=== PATIENT | male | born 1955 | race Caucasian/White ===

== ENCOUNTER → 2023-01-19 | Outpatient (CLI) | payer MEDICARE, OTHER | LOC: CARD 08:10 | PROVIDERS: ATTEND Internal Medicine Cardiovascular Disease | DX: I10 Essential (primary) hypertension (principal); I25.10 Atherosclerotic heart disease of native coronary artery without angina pectoris | CPT/HCPCS: 93306 ==

== ENCOUNTER 2023-02-15 10:50 | Day surgery (SDC) | payer MEDICARE, OTHER ==
[~2023-02-15] VITALS: Ht 172 cm; Wt 120.0 kg
[2023-02-15] VITALS (13 sets, daily range): BP systolic 97–171; BP diastolic 42–73
--- NOTE | 2023-02-15 10:43 | Cardiology Stress Test Report ---
Stress Test Report Date of Procedure/Referring: Date of Procedure: Feb 15, [address] Patrick Romero Admitting Physician Admitting Physician: Attending Physician: Itzel Billy MD Indications: Dyspnea Baseline Heart Rate: 64 Baseline Blood Pressure: Blood Pressure Systolic: 163 Blood Pressure Diastolic: 70 Vital Signs Date Time Temp Pulse Resp B/P (MAP) Pulse Ox O2 Delivery O2 Flow Rate FiO2 02/15/23 09:14 66 17 105/69 (81) 98 Room Air Baseline Vital Signs Vital Signs Date Time Temp Pulse Resp B/P (MAP) Pulse Ox O2 Delivery O2 Flow Rate FiO2 02/15/23 09:14 66 17 105/69 (81) 98 Room Air Baseline EKG: Baseline EKG: NSR Summary: After explaining the procedure and details to the patient, he signed the consent and was brought to the stress nuclear laboratory. Patient exercised on standard Ghassan protocol, EKG, heart rate and blood pressure were monitored continuously, resting and stress doses of radio tracer were injected, imaging was acquired and reviewed in the short axis, horizontal long axis and vertical long axis views Patient was able to exercise for a total of 6 minutes on Ghassan protocol, METs 7.3 Maximum heart rate 134 Maximum blood pressure 214/64 Stress EKG, Minimal nondiagnostic changes Recovery EKG, Return to baseline TID: 0.94 SSS: 5 SDS: 5 EF: 55 Conclusion: Fair exercise tolerance for 6 minutes on standard Ghassan protocol 7.3 METS achieving 88% of maximum expected heart rate Appropriate heart rate response to exercise with hypertensive response to exercise with peak blood pressure 214/64 Exercise-induced multiple episodes of nonsustained ventricular tachycardia up to 8 beats during recovery Nondiagnostic EKG changes with exercise return to baseline during recovery Reversible ischemia involving the mid to apical inferior wall and inferolateral wall mild decrease uptake at the anterior wall Normal left ventricular size, ejection fraction 55% ITZEL BILLY MD Feb 15, 2023 10:43
[~2023-02-15 10:50] MED LIST: CATHETER FLUSH 10 ML SYR IVP PRN; HEParin (CATH LAB) 2,000 ML IV ONE; LIDOCAINE 1% INJ 20 ML VIAL ONE; NS IV 1000 ML 1,000 ML IV SCH; NS IV 1000 ML 1,000 ML ONE
[2023-02-15] MEDS ORDERED: VERAPAMIL 5 MG/2 ML (CALAN) VIAL IV ONE (11:05)
[2023-02-15] MEDS ORDERED: fentaNYL INJ 100 MCG/2 ML AMP ONE (11:05)
[2023-02-15] MEDS ORDERED: HEParin 1000 UNIT/ML (10ML VIAL) FOR BOLUS ONE (11:06)
[2023-02-15] MEDS ORDERED: NITRO DRIP 25000 MCG/D5W 250 ML IV ONE (11:06)
[2023-02-15] MEDS ORDERED: MIDAZOLAM 5 MG/5 ML (VERSED) VIAL ONE (11:06)
[2023-02-15 11:46] LABS: HEMATOCRIT 39 % (40-54); HEMOGLOBIN 13.3 g/dL (13.3-17.7); MEAN CORPUSCULAR HEMOGLOBIN 31 pg (25-34); MEAN CORPUSCULAR HGB CONC 34 g/dL (32-36); MEAN CORPUSCULAR VOLUME 90 fL (80-99); MEAN PLATELET VOLUME 9.7 fL (9.0-12.2); PLATELET COUNT 253 10^3/uL (130-400); WHITE BLOOD COUNT 7.3 10^3/uL (4.3-11.0)
[2023-02-15 11:56] LABS: PROTHROMBIN TIME PATIENT 13.5 SEC (12.2-14.7)
[2023-02-15] MEDS ORDERED: ATROPINE INJECTION 1 MG/10 ML SYR (ABBOTT) ONE (11:56)
[2023-02-15 11:59] LABS: ALBUMIN 4.4 GM/DL (3.2-4.5); BILIRUBIN,TOTAL 0.8 MG/DL (0.1-1.0); CALCIUM 10.8 MG/DL (8.5-10.1); CREATININE SERUM 1.15 MG/DL (0.60-1.30); TOTAL PROTEIN 7.1 GM/DL (6.4-8.2)
--- NOTE | 2023-02-15 12:09 | Cardiac Procedure Note-CS/ASA ---
Pre-Procedure Note Pre-Op Procedure Note Date of Available H&P: Feb 15, 2023 Date H&P Reviewed: Feb 15, 2023 Time H&P Reviewed: 11:00 History & Physical: H&P Reviewed, Patient Examed, No changes noted Pre-Operative Diagnosis: CAD Moderate Sedation PreProcedure Time 11:00 ASA Score 3 Airway Lungs Heart ASA score ASA 1: a normal healthy patient ASA 2: a patient with a mild systemic disease (mid diabetes, controlled hypertension, obesity ASA 3: a patient with a severe systemic disease that limits activity (angina, COPD, prior Myocardial infarction) ASA 4: a patient with an incapacitating disease that is a constant threat to life (CHF, renal failure) ASA 5: a moribund patient not expected to survive 24 hrs. (ruptured aneurysm) ASA 6: a declared brain- patient whose organs are being harvested. For emergent operations, add the letter E after the classification Mallampati Classification Grade 3 Sedation Plan Analgesia, Amnesia, Plan communicated to team members, Discussed options with patient/fam, Discussed risks with patient/fam The patient is an appropriate candidate to undergo the planned procedure, sedation, and anesthesia. The patient immediately re-assessed prior to indication. ITZEL PHILLIPS MD Feb 15, 2023 12:09
--- NOTE | 2023-02-15 12:10 | Discharge Inst-Post CATH ---
Discharge Inst-CATH/EP Problems Reviewed?: Yes Post Cardiac Cath/EP D/C Inst Follow Up/Plan Appointment with Dr. Billy's office in 2 to 4 weeks <b>CARDIAC CATH/EP PROCEDURE DISCHARGE INSTRUCTIONS</b> ACTIVITY * Go Home directly and rest. * Limit activity of the leg (or wrist if it was used) for 7 days including aer obics, swimming, jogging, bicycling, etc. * Restrict stair-climbing for 7 days if possible, if not, climb up with your non-cath leg, then bring together on the same step. * Avoid lifting, pushing, pulling or excessive movement of the affected extremi ty for 7 days. * Customary sexual activity may be resumed after 2 days-use caution not to use a position that strains or causes pain to the affected extremity. * No driving for 24 hours. * NO SMOKING. * Avoid straining for bowel movements for 7 days. * Gentle walking on level ground is allowed. * Returning to work will depend on the type of procedure and the results. Your doctor will discuss this with you. CALL YOUR DOCTOR FOR ANY OF THE FOLLOWING: *If bleeding from the puncture site occurs- Apply gentle pressure to site with clean cloth and call your doctor or EMS. * If a knot or lump forms under the skin, increases in size, or causes pain. * If bruising appears to be worsening or moving further down your leg instead of disappearing. * Temperature above 101 F. CARE OF YOUR GROIN INCISION; * Bruising or purple discoloration of the skin near the puncture site is common. * You may shower only, no bathtub bathing for 5 days. Be careful to avoid slipping as your leg may feel stiff. * If a closure device was used on your femoral artery, please see the attached guide regarding care of the device and your leg. * Leave dressing on FOR 24 hours. CARE OF YOUR WRIST INCISION; * Bruising or purple discoloration of the skin near the puncture site is common. * You may shower. * DO NOT submerge wrist. * Leave dressing on FOR 24 hours. ITZEL BILLY MD Feb 15, 2023 12:10
--- NOTE | 2023-02-15 12:14 | Cardiac Cath Report ---
Cardiac Cath Report Physician (s)/Film Editor Supervisor (s) Physician ITZEL PHILLIPS MD Pre-Procedure Diagnosis Pre-Procedure Diagnosis: CAD Post-Procedure Note Procedure Start Date: Feb 15, 2023 Name of Procedure: Left heart catheterization Left ventriculogram Aortic arch angiogram Findings/Procedure Note PROCEDURE NOTE: 67-year-old gentleman with abnormal stress test done today showing inferior wall ischemia, had exercise-induced nonsustained ventricular tachycardia. Urgent cardiac catheterization was advised. After explaining the procedure to the patient, all pros and cons were explained, all questions were answered. The patient signed the consent and then he was placed in the cardiac catheterization laboratory. Groin was prepped in SL fashion local anesthesia was used. Sheath placed in the right radial artery, [place] catheter was advanced and engaged the left coronary system could not cross the aortic valve with it, exchanged to a Sara right catheter and engaged the right coronary system and angiogram was done then I was able to cross the aortic valve and advanced the catheter to the left ventricular cavity, pressure was measured, pullback LV to aorta was done, left ventriculogram was done then patient was hypotensive throughout the procedure I was concerned about aortic dissection I proceeded with aortic arch angiogram. Left ventriculogram was done Aortic arch angiogram was done At the end of the procedure the sheath was removed. Vascular band was used FINDINGS: Hemodynamics LV 76/11, end-diastolic pressure of 11 Aorta 84/58 mean of 71 ANATOMY: Left Main is free of obstructive disease Left Anterior Descending is tortuous artery with slow flow in the LAD Left Circumflex is moderate in size with slow flow Right Coronary Artery is dominant artery large artery with slow flow in the right coronary artery LV Gram was done showing normal left ventricular size, ejection fraction 50% Aorta evaluation done with aortic arch angiogram showing normal aortic arch, no dissection, no aneurysm, normal origin of the brachiocephalic artery left carotid and left subclavian arteries Dominance right coronary artery CONCLUSION: Dominant right coronary system with slow flow in the coronary system due to small vessel disease Normal left ventricular size, ejection fraction 50% Normal aortic arch and great vessels of the neck DISCUSSION AND RECOMMENDATION: Patient has significantly slow flow in the coronary system due to small vessel disease and he was hypotensive during the procedure. We will decrease his losartan. Educated on increasing fluid intake and monitor lipids Anesthesia Type: Conscious Sedation Estimated blood loss (mL): 10 ml Contrast Amount: 70 ml Total Radiation Dose: 1001 mGy Post-Procedure Diagnosis Post-operative diagnosis: Shortness of breath Coronary artery disease Hyperlipidemia Ventricular tachycardia ITZEL PHILLIPS MD Feb 15, 2023 12:14
[2023-02-15] MEDS ORDERED: NS IV 1000 ML 1,000 ML IV SCH (12:15)
--- NOTE | 2023-02-15 12:17 | Cardiology History & Physical ---
HPI-Cardiology Cardiology Consultation Date of Consultation 02/15/23 Date of Admission Time Seen by Provider: 11:00 Indication: Shortness of breath HPI 67-year-old gentleman with history of hypertension, hyperlipidemia, was scheduled for stress test today, during stress test patient had nonsustained ventricular tachycardia, had an abnormal stress test with inferior wall ischemia . I visited with the patient and recommended cardiac catheterization. PMH-Cardiology Genitourinary Prostate Problems Cancer Skin Social History Patient Social History Marrital Status: Family Hx Significant Family History: No Pertinent Family Hx ROS-Cardiology Review of Systems General: No Chills, No Night Sweats; Fatigue; No Malaise, No Appetite HEENT: No Head Aches, No Visual Changes, No Eye Pain, No Ear Pain, No Dysphasi a, No Sinus Congestion, No Post Nasal Drip, No Sore Throat Pulmonary: Dyspnea; No Cough, No Pleuritic Chest Pain Cardiovascular: No: Chest Pain, Palpitations, Orthopnea, Paroxysmal Noc. Dyspnea, Edema, Lt Headedness Gastrointestinal: No: Nausea, Vomiting, Abdominal Pain, Diarrhea, Constipation, Melena, Hematochezia Genitourinary: No Dysuria, No Frequency, No Incontinence, No Hematuria, No Retention Musculoskeletal: No: neck pain, shoulder pain, arm pain, back pain, hand pain, leg pain, foot pain Neurological: No: Weakness, Numbness, Incoordination, Change in speech, Confusion, Seizures Home Medications & Allergies Allergies: Coded Allergies: Sulfa (Sulfonamide Antibiotics) (Unverified Allergy, Unknown, 02/15/23) Home Medication List Reviewed: Yes Exam-Cardiology Vital Signs Vital Signs Date Time Temp Pulse Resp B/P (MAP) Pulse Ox O2 Delivery O2 Flow Rate FiO2 02/15/23 10:53 36.4 70 22 109/51 (70) Room Air 02/15/23 09:22 98 Exam General Appearance: Alert, Oriented X3, Cooperative, No Acute Distress HEENT: Atraumatic, PERRLA Respiratory: Clear to Auscultation, Normal Air Movement Cardiovascular: Regular Rate, Normal S1, Normal S2, No Murmurs Abdominal: Normal Bowel Sounds, Soft, No Tenderness, No Hepatosplenomegaly, No Masses Extremities: No Clubbing, No Cyanosis, No Edema, Normal Pulses, No Tenderness/Swelling Skin: No Rashes, No Breakdown, No Significant Lesion Neuro: Normal Gait, Normal Speech, Strength at 5/5 X4 Ext, Normal Tone, Sensation Intact Psych/Mental Status: Mental Status NL, Mood NL Results Labs Labs Laboratory Tests 02/15/23 10:53: White Blood Count 7.3, Red Blood Count 4.29L, Hemoglobin 13.3, Hematocrit 39L, Mean Corpuscular Volume 90, Mean Corpuscular Hemoglobin 31, Mean Corpuscular Hemoglobin Concent 34, Red Cell Distribution Width 12.4, Platelet Count 253, Mean Platelet Volume 9.7, Prothrombin Time 13.5, INR Comment 1.0, Activated Part ial Thromboplast Time 32, Sodium Level 139, Potassium Level 4.0, Chloride Level 106, Carbon Dioxide Level 26, Anion Gap 7, Blood Urea Nitrogen 14, Creatinine 1.15, Estimat Glomerular Filtration Rate 69, BUN/Creatinine Ratio 12, Glucose Level 90, Calcium Level 10.8H, Corrected Calcium 10.5H, Total Bilirubin 0.8, Aspartate Amino Transf (AST/SGOT) 37H, Alanine Aminotransferase (ALT/SGPT) 61H, Alkaline Phosphatase 90, Total Protein 7.1, Albumin 4.4, Triglycerides Level 114, Cholesterol Level 114, LDL Cholesterol Direct 60, VLDL Cholesterol 23, HDL Cholesterol 36L A/P-Cardiology Admission Diagnosis Dyspnea Coronary artery disease Hypertension Hyperlipidemia Admission Status: Observation Reason for Inpatient Admission: Same day surgery Assessment/Plan Dyspnea on insertion, will unsteady gait Nonsustained ventricular tachycardia noted during stress test Recommended cardiac catheterization Coronary artery disease, abnormal stress test with inferior wall ischemia. Recommended cardiac catheterization Hypertension, currently borderline hypotensive, monitor blood pressure Hyperlipidemia maintained on atorvastatin 20 mg daily COPD, using CPAP as an outpatient History of depression BMI 40, discussed weight loss ITZEL PHILLIPS MD Feb 15, 2023 12:17
[2023-02-15] MEDS ORDERED: MULT267T PO (12:27)
[2023-02-15] MEDS ORDERED: BETA15CR14 TP (12:27)
[2023-02-15] MEDS ORDERED: ATOR20TA66 PO (12:27)
[2023-02-15] MEDS ORDERED: CETI10TA24 PO (12:27)
[2023-02-15] MEDS ORDERED: TADA20TA43 PO (12:27)
[2023-02-15] MEDS ORDERED: OMEG12002 PO (12:27)
[2023-02-15] MEDS ORDERED: CHOL500050 PO (12:27)
[2023-02-15] MEDS ORDERED: BUPR300T98 PO (12:27)
[2023-02-15] MEDS ORDERED: DICL20GE TP (12:27)
[2023-02-15] MEDS ORDERED: ASPI-999 PO (12:27)
[2023-02-15] MEDS ORDERED: OMEP20CA18 PO (12:27)
[2023-02-15] MEDS ORDERED: TMSL.4C PO (12:27)
[2023-02-15] MEDS ORDERED: LOSA100T57 PO (12:27)
[2023-02-15] MEDS ORDERED: FLUT9.9S NS (12:27)
[2023-02-15] MEDS ORDERED: LOSA50TA63 PO (14:02)
== END 2023-02-15 15:13 | disposition home or self-care (01) ==
LOC: SDC 10:50 → CATH 15:13
PROVIDERS: ATTEND Internal Medicine Cardiovascular Disease
DX: I25.10 Atherosclerotic heart disease of native coronary artery without angina pectoris (principal); I47.20 Ventricular tachycardia, unspecified; I10 Essential (primary) hypertension; I65.23 Occlusion and stenosis of bilateral carotid arteries; G47.33 Obstructive sleep apnea (adult) (pediatric); J44.9 Chronic obstructive pulmonary disease, unspecified; J30.9 Allergic rhinitis, unspecified; E78.5 Hyperlipidemia, unspecified; E78.2 Mixed hyperlipidemia; E66.9 Obesity, unspecified; F32.9 Major depressive disorder, single episode, unspecified; Z87.891 Personal history of nicotine dependence; Z99.81 Dependence on supplemental oxygen; Z68.41 Body mass index [BMI] 40.0-44.9, adult; Z79.899 Other long term (current) drug therapy
CPT/HCPCS: 36221; 78452; 80053; 80061; 85027; 85610; 85730; 87081; 93017; 93458; A9502; C1894; 36415